=== PATIENT | male | born 1970 | race Caucasian/White ===

== ENCOUNTER 2020-06-03 15:51 | Emergency (ER) | payer SELFPAY ==
--- NOTE | ~2020-06-03 | CT_ITS ---
EXAMINATION: CT abdomen pelvis wo con DATE: 06/03/2020 16:26 INDICATION: Left lower quadrant abdominal pain. Left flank pain. TECHNIQUE: Computed tomography (CT) of the abdomen and pelvis was performed without intravenous contr ast. Automated exposure control and iterative reconstruction technique were employed. The dose-length product was 353.79 mGy-cm. COMPARISON: None. FINDINGS: The visualized portions of the lung bases demonstrate minimal atelectasis. No pleural effus ion. The heart size is normal. No pericardial effusion. The liver, gallbladder, spleen, pancreas, and adrenal glands are normal. There is a 13 mm cyst in right kidney. There is mild left hydronephrosis and hydroureter. There is a 5 mm stone at left ureterovesicular junction. There are no dilated loops of bowel. The appendix is normal. There are no pathologically enlarged lymph nodes. There is no free intraperitoneal fluid. There is asymmetric edema in left perinephric space. There is moderate lumbar spondylosis. IMPRESSION: 1. 5 mm stone at left ureterovesicular junction with mild left hydronephrosis and hydroureter. Reviewed, dictated and finalized at location A. NEERING FACULTY MEMBER IMPRESSION: 1. 5 mm stone at left ureterovesicular junction with mild left hydronephrosis a nd hydroureter.
[2020-06-03 15:53] VITALS: BP 160/99; PULSE 91; RESP 18; TEMP 36.1; O2SAT 99
[2020-06-03] MEDS: SODIUM CHLORIDE 0.9% IV 1,000 ML 999 ML IV CONT ×2 (16:39→17:25)
[2020-06-03] MEDS: FAMOTIDINE 20 MG/2 ML VIAL IV PUSH (16:39)
[2020-06-03] MEDS: HYDROmorphone HCL INJ (*CRX) 1 MG/ML SYR IV PUSH (16:40)
[2020-06-03] MEDS: ONDANSETRON INJ 4 MG/2 ML VIAL IV PUSH (16:40)
[2020-06-03 16:47] VITALS: BP 168/99; O2SAT 98
--- NOTE | 2020-06-03 16:47 | ED.GENADULT ---
HPI - General Adult General Chief complaint: Abdominal Pain <Kai Francois PA-C - Last Filed: 06/03/20 18:16> Stated complaint: left flank pain <Kai Francois PA-C - Last Filed: 06/03/20 18:16> Time Seen by Provider: 06/03/20 16:11 <Kai Francois PA-C - Last Filed: 06/03/20 18:16> Source: patient <Kai Francois PA-C - Last Filed: 06/03/20 18:16> Mode of arrival: ambulatory <MECHE Tripp Last Filed: 06/03/20 18:16> Limitations: no limitations <Kai Francois PA-C - Last Filed: 06/03/20 18:16> History of Present Illness HPI narrative: Patient is a 49-year-old male who presents with acute onset of severe left flank pain had mild discomfort yesterday today the pain intensified has not taken anything for his symptoms presents an uncomfortable state notes nausea denies emesis urinary or bowel changes or similar occurrence in the past <Kai Francois PA-C - Last Filed: 06/03/20 18:16> Related Data Allergies/adverse reactions: Allergies Allergy/AdvReac Type Severity Reaction Status Date / Time Penicillins Allergy Unknown Rash Verified 06/03/20 15:55 <Kai Francois PA-C - Last Filed: 06/03/20 18:16> Review of Systems Review of Systems: All systems reviewed & are unremarkable except as noted in HPI and below <Kai Francois PA-C - Last Filed: 06/03/20 18:16> PMFSH Family History Family History: Family History (System 07/28/19 @ 10:43 by Tin Lauren) Mother Family history of lupus erythematosus Other Diabetes mellitus <Kai Francois PA-C - Last Filed: 06/03/20 18:16> Social History Social History: Social History Smoking status: Current every day smoker Alcohol intake: current <MECHE Tripp Last Filed: 06/03/20 18:16> Exam Narrative: Exam Narrative: GENERAL: Well-appearing, well-nourished, uncomfortable and in no acute distress. HEAD: Normocephalic, atraumatic. EYES: PERRLA and EOMI. ENT: Nares clear, no rhinorrhea or epistaxis. Mucous membranes moist. CHEST: Clear to auscultation. No respiratory distress. No wheezes rales or rhonchi HEART: Regular rate and rhythm. No murmur heard. Normal peripheral pulses. ABDOMEN: Soft, nontender, nondistended. EXTREMITIES: Normal range of motion. No edema. SKIN: Warm, dry, no rash. NEURO: No focal deficits. Alert and oriented x3. PSYCH: Normal mood and affect. <Kai Francois PA-C - Last Filed: 06/03/20 18:16> Course Course Emergency Course: Patient found to have urolithiasis was hydrated given pain management in the ER with improvement will be tried on an outpatient means with urology follow-up given reasons to return hemodynamically stable <Kai Francois PA-C - Last Filed: 06/03/20 18:16> Vital Signs Vital signs: Vital Signs Temperature 36.1 C L 06/03/20 15:53 Pulse Rate 91 06/03/20 15:53 Respiratory Rate 18 06/03/20 15:53 Blood Pressure 160/99 H 06/03/20 15:53 Pulse Oximetry 99 06/03/20 15:53 Temperature 36.1 C L 06/03/20 15:53 Pulse Rate 91 06/03/20 15:53 Respiratory Rate 18 06/03/20 15:53 Blood Pressure 146/85 H 06/03/20 17:46 Pulse Oximetry 99 06/03/20 17:46 <MECHE Tripp Last Filed: 06/03/20 18:16> Vital Signs Temperature 36.1 C L 06/03/20 15:53 Pulse Rate 91 06/03/20 15:53 Respiratory Rate 18 06/03/20 15:53 Blood Pressure 160/99 H 06/03/20 15:53 Pulse Oximetry 99 06/03/20 15:53 Temperature 36.1 C L 06/03/20 15:53 Pulse Rate 91 06/03/20 15:53 Respiratory Rate 18 06/03/20 15:53 Blood Pressure 146/85 H 06/03/20 17:46 Pulse Oximetry 99 06/03/20 17:46 <Angel Castro MD - Last Filed: 06/05/20 15:35> Medical Decision Making MDM Narrative Medical decision making narrative: Patient with urolithiasis pain well controlled will be discharged home for outpatient follow-
[2020-06-03 16:52] LABS: Basophils Percent Auto 0.3 % (0.2-1.2); Eosinophils Absolute Auto 0.2 K/mm3 (0-0.3); Eosinophils Percent Auto 1.2 % (0-4.4); Hematocrit 45.5 % (42.0-52.0); Immature Granulocyte Absolute 0.04 K/mm3 (0.00-0.031); Immature Granulocyte Percent A 0.3 % (0-0.5); Lymphocytes Percent Auto 13.9 % (18.3-44.2); Mean Corpuscular HGB Conc 35.2 g/dl (32-36); Mean Corpuscular Hemoglobin 31.1 pg (26-34); Mean Corpuscular Volume 88.3 fl (80-100); Mean Platelet Volume 9.6 fl (7.4-10.4); Monocytes Absolute Auto 1.6 K/mm3 (0.1-0.6); Monocytes Percent Auto 11.5 % (2.6-8.5); Neutrophils Percent Auto 72.8 % (45.5-73.1); Platelet Count Result 303 k/mm3 (150-375); Red Blood Count 5.15 M/mm3 (4.6-6.20); Red Cell Distribution Width 11.7 % (11.5-14.5); White Blood Count 13.7 K/mm3 (4.5-10.0)
[2020-06-03 17:02] VITALS: BP 187/102; O2SAT 99
[2020-06-03 17:03] LABS: Alanine Aminotransferase 33 U/L (4-50); Albumin Level 4.1 g/dL (3.5-5.1); Alkaline Phosphatase 75 U/L (38-126); Anion Gap 4 mmol/L (8-16); Aspartate Amino Transferase 40 U/L (17-59); Bilirubin,Total 0.7 mg/dL (0.2-1.3); Blood Urea Nitrogen 14 mg/dL (9-20); Calcium 10.1 mg/dL (8.4-10.2); Carbon Dioxide 29 mmol/L (22-30); Chloride 103 mmol/L (98-107); Estimated CRCL calculation 48 ml/min; Estimated Glomerular Filt Rate 50; Glucose 128 mg/dL (75-110); Lipase 140 U/L (23-300); Potassium 3.9 mmol/L (3.4-5.0); Sodium 136 mmol/L (137-145)
[2020-06-03] MEDS: KETOROLAC 30 MG/ML VIAL (*BKC) IV PUSH (17:08)
[2020-06-03 17:16] VITALS: BP 153/98; O2SAT 91
[2020-06-03 17:31] VITALS: BP 164/88; O2SAT 97
[2020-06-03 17:37] LABS: Add Urine Microscopic? YES; Appearance Urine Clear (Clear); Bacteria Urine Trace /hpf; Bilirubin Urine Negative (Negative); Blood Urine 1+ (Negative); Color Urine Straw (Yellow); Glucose Urine UA Negative (Negative); Ketones Urine Negative (Negative); Leukocyte Esterase Ur Negative LEU/UL (Negative); Mucus Urine Rare /lpf; Nitrate Urine Negative (Negative); Protein Urine Negative (Negative); Specific Grav Ur 1.011 (1.001-1.035); Squamous Epithelial Cell Urine Rare /hpf (Few); Urobilinogen Urine Negative mg/dL (<2.0); WBC Urine 0-3 /hpf
[2020-06-03 17:46] VITALS: BP 146/85; O2SAT 99
--- NOTE | 2020-06-03 18:45 | PC.NURSE ---
Pt's IV removed cath intact prior to discharge. 1000cc NS (2000cc total) infused prior to removal.
[2020-06-03] MEDS: TAMSULOSIN HCL 0.4 MG CAPSULE PO (18:56)
[2020-06-03] MEDS: HYDROcodone/acetaminophen (*CRX) 7.5-325 MG TABLET 1 TAB PO (18:56)
== END 2020-06-03 19:00 | disposition home or self-care (01) ==
PROVIDERS: Emergency Medicine Emergency Medical Services; Emergency Provider Emergency Medicine
DX: N13.2 Hydronephrosis with renal and ureteral calculous obstruction (principal); F17.200 Nicotine dependence, unspecified, uncomplicated
CPT/HCPCS: 36415; 74176; 80053; 81001; 83690; 85025; 96361; 96374; 96375; 99284; A9270; J1170; J1885; J2405; J7030

== ENCOUNTER 2020-06-06 16:07 | Emergency (ER) | payer SELFPAY ==
[2020-06-06 16:51] VITALS: BP 131/84; PULSE 115; RESP 18; TEMP 36.4; O2SAT 97
[2020-06-06 17:13] LABS: Basophils Percent Auto 0.4 % (0.2-1.2); Eosinophils Absolute Auto 0.2 K/mm3 (0-0.3); Eosinophils Percent Auto 2.2 % (0-4.4); Hematocrit 41.7 % (42.0-52.0); Hemoglobin 13.9 g/dL (14.0-18.0); Immature Granulocyte Absolute 0.02 K/mm3 (0.00-0.031); Immature Granulocyte Percent A 0.2 % (0-0.5); Lymphocytes Percent Auto 20.4 % (18.3-44.2); Mean Corpuscular HGB Conc 33.3 g/dl (32-36); Mean Corpuscular Hemoglobin 30.3 pg (26-34); Mean Corpuscular Volume 90.8 fl (80-100); Mean Platelet Volume 9.5 fl (7.4-10.4); Monocytes Absolute Auto 1.6 K/mm3 (0.1-0.6); Monocytes Percent Auto 14.5 % (2.6-8.5); Neutrophils Absolute Auto 6.7 K/mm3 (1.3-6.7); Neutrophils Percent Auto 62.3 % (45.5-73.1); Platelet Count Result 269 k/mm3 (150-375); Red Blood Count 4.59 M/mm3 (4.6-6.20); Red Cell Distribution Width 11.8 % (11.5-14.5); White Blood Count 10.8 K/mm3 (4.5-10.0)
[2020-06-06 17:21] LABS: Alanine Aminotransferase 21 U/L (4-50); Albumin Level 3.8 g/dL (3.5-5.1); Alkaline Phosphatase 58 U/L (38-126); Anion Gap 3 mmol/L (8-16); Aspartate Amino Transferase 26 U/L (17-59); Bilirubin,Total 0.6 mg/dL (0.2-1.3); Blood Urea Nitrogen 20 mg/dL (9-20); Carbon Dioxide 31 mmol/L (22-30); Chloride 102 mmol/L (98-107); Estimated CRCL calculation 38 ml/min; Estimated Glomerular Filt Rate 38; Glucose 92 mg/dL (75-110); Lipase 50 U/L (23-300); Potassium 4.4 mmol/L (3.4-5.0); Sodium 136 mmol/L (137-145)
--- NOTE | 2020-06-06 18:42 | PC.NURSE ---
Pt came up to intake desk asking how long the wait would be. This RN told him i was unsure and we were trying to get people moved. Pt states I just want to lay down so im gonna go home and come back tomorrow
== END 2020-06-06 21:33 | disposition left against medical advice (07) ==
LOC: ANHED 18:48
PROVIDERS: Emergency Provider Emergency Medicine
DX: N20.0 Calculus of kidney (principal)
CPT/HCPCS: 36415; 80053; 83690; 85025; 99199

== ENCOUNTER 2020-11-15 18:04 | Emergency (ER) | payer OTHER, SELFPAY ==
--- NOTE | 2020-11-15 18:17 | PC.NURSE ---
patient to triage desk stating that he does not want to wait to be seen
== END 2020-11-15 18:17 | disposition left against medical advice (07) ==
DX: Z53.21 Procedure and treatment not carried out due to patient leaving prior to being seen by health care provider (principal)
CPT/HCPCS: 99199

== ENCOUNTER 2021-07-21 13:07 | Emergency (ER) | payer OTHER, SELFPAY ==
[2021-07-21 13:09] VITALS: BP 142/90; PULSE 85; RESP 15; TEMP 36.7; O2SAT 98
--- NOTE | 2021-07-21 13:54 | ED.DENTAL ---
HPI - Dental/Oral General Chief complaint: Dental/Oral Stated complaint: dental pain Time Seen by Provider: 07/21/21 13:30 Source: patient History of Present Illness HPI Narrative: Patient presents with dental pain and facial swelling. Reports intermittent dental pain over the past several weeks this episode has been going on for the past few days getting progressively worse. Ports his pain is primarily on his left upper jaw this morning woke up and noted swelling around his face he was concerned so he came to the ER for evaluation. Reports a history of poor dentition but has had a hard time getting into see a dentist for his recurring dental pain given the swelling he wanted to be evaluated in the ER. Denies any fevers, cough, congestion. His pain is achy, constant, worse with pushing on his left upper teeth, radiates across his face. Related Data Allergies Allergy/AdvReac Type Severity Reaction Status Date / Time Penicillins Allergy Unknown Rash Verified 06/03/20 15:55 Review of Systems Review of Systems: CONSTITUTIONAL: Denies fever, chills, or sweats. EYES: Denies visual changes, redness, or discharge. ENT: Denies rhinorrhea, congestion, sore throat, or otalgia. CARDIOVASCULAR: Denies chest pain, palpitations, or edema. RESPIRATORY: Denies cough or dyspnea. GASTROINTESTINAL: Denies abdominal pain, nausea, vomiting, or diarrhea. GENITOURINARY: Denies dysuria or hematuria. SKIN: Denies rash or itching. MUSCULOSKELETAL: Denies back pain, joint pain, or myalgia. NEUROLOGIC: Denies headache, numbness, dizziness, or weakness. PSYCHIATRIC: Denies anxiety or depression. All systems reviewed & are unremarkable except as noted in HPI and below PMFSH Family History Family History Mother Family history of lupus erythematosus Other Diabetes mellitus Social History Social History Smoking status: Current every day smoker Alcohol intake: current Exam Narrative: GENERAL: Well-appearing, well-nourished, and in no acute distress. HEAD: Normocephalic, atraumatic. EYES: PERRLA and EOMI. ENT: Nares clear, no rhinorrhea or epistaxis. Mucous membranes moist. Diffusely poor dentition tenderness to palpation on his left upper molars there is erythema and edema noted on the left face no focal areas of fluctuance no obvious purulent drainage NECK: Supple. No masses. No JVD EXTREMITIES: Normal range of motion. No edema. SKIN: Warm, dry, no rash. NEURO: No focal deficits. Alert and oriented x3. PSYCH: Normal mood and affect. Course Vital Signs Vital signs: Vital Signs Temperature 36.7 C 07/21/21 13:09 Pulse Rate 85 07/21/21 13:09 Respiratory Rate 15 07/21/21 13:09 Blood Pressure 142/90 H 07/21/21 13:09 Pulse Oximetry 98 07/21/21 13:09 Temperature 36.7 C 07/21/21 13:09 Pulse Rate 85 07/21/21 13:09 Respiratory Rate 15 07/21/21 13:09 Blood Pressure 142/90 H 07/21/21 13:09 Pulse Oximetry 98 07/21/21 13:09 MDM - Dental/Oral MDM Narrative Medical decision making narrative: H&P as above, vss, pt looks clinically well, exam with left facial swelling and diffusely poor dentition, additional labs/img considered, symptomatic relief available as needed, on reevaluation pt continues to looks clinically well. Suspect dental abscess, dns severe sepsis, severe dehydration, airway compromise. Counseled patient on importance of following up with a dentist. Discharge Plan Discharge Clinical Impression: Abscess, dental Patient Disposition: Home, Self-Care Condition: Improved Instructions: Antibiotic Form, Dental Abscess (ED) Additional Instructions: Please return if your symptoms worsen or fail to improve. If you develop a fever, can not eat/drink anything or if you have any other concerns. Prescriptions: New clindamycin HCl 150 mg capsule 450 mg PO TID 7 Days Qty: 63 RF: 0 ox
[2021-07-21] MEDS: KETOROLAC 30 MG/ML VIAL (*BKC) IM (14:09)
[2021-07-21] MEDS: CLINDAMYCIN HCL 150 MG CAP 450 MG PO (14:10)
== END 2021-07-21 14:18 | disposition home or self-care (01) ==
PROVIDERS: Emergency Provider Emergency Medicine
DX: K04.7 Periapical abscess without sinus (principal); F17.200 Nicotine dependence, unspecified, uncomplicated
CPT/HCPCS: 96372; 99283; A9270; J1885

== ENCOUNTER 2021-07-25 14:29 | Emergency (ER) | payer OTHER, SELFPAY ==
[2021-07-25 14:53] VITALS: BP 115/68; PULSE 74; RESP 18; TEMP 36.3; O2SAT 96
--- NOTE | 2021-07-25 15:49 | PC.NURSE ---
pt called to go back to a room. no answer
--- NOTE | 2021-07-25 16:08 | PC.NURSE ---
Pt called again with no answer
== END 2021-07-25 15:35 | disposition left against medical advice (07) ==
LOC: ANHED 16:16
DX: R22.0 Localized swelling, mass and lump, head (principal)
CPT/HCPCS: 99199

== ENCOUNTER 2022-02-15 13:47 | Emergency (ER) | payer OTHER, SELFPAY ==
[2022-02-15 14:07] VITALS: BP 128/92; PULSE 103; RESP 18; TEMP 36.1
--- NOTE | 2022-02-15 14:10 | ED.LOWEXIN ---
HPI - Extremity Injury (Lower) General Chief Complaint: Extremity Injury, Lower Stated Complaint: Left Knee Pain Time Seen by Provider: 02/15/22 14:11 Source: patient Mode of arrival: ambulatory Limitations: no limitations History of Present Illness HPI Narrative: 51-year-old male presents with complaint redness, swelling, tenderness to left lower leg. Reports started as small pimple and she popped it and infection became worse. 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 Afebrile. Ambulatory with limp. All systems reviewed and negative except as noted above. Related Data Home Medications Medication Instructions Recorded Confirmed ibuprofen 800 mg tablet mg 02/15/22 Allergies Allergy/AdvReac Type Severity Reaction Status Date / Time Penicillins Allergy Unknown Rash Verified 06/03/20 15:55 [facility] Family History Family History Mother Family history of lupus erythematosus Other Diabetes mellitus Social History Social History Smoking status: Current every day smoker Alcohol intake: current Comments At time of signature, agree with nursing past medical, surgical, social and family history. There is no relevant family history pertinent to the presenting complaint. Exam Narrative: GENERAL: This is a well-nourished, well-developed patient, in no apparent distress. HEAD: normocephalic, atraumatic. EYES: PERRL. Sclera clear/white. Vision is grossly intact. EARS: External ears normal NOSE: External nose normal NECK: Neck supple, non-tender without lymphadenopathy, masses or thyromegaly. CARDIOVASCULAR: Regular rate and rhythm without murmurs, gallops, or rubs. RESPIRATORY: Clear to auscultation. Breath sounds equal bilaterally. No wheezes, rales, or rhonchi. SKIN: warm, Dry, intact with no suspicious lesions or rash, good texture and turgor. Erythema, warmth, tenderness , mild swelling to left knee/ jacob. No drainage. NEURO: awake, alert, and oriented to person, place and time. There were no obvious focal neurologic abnormalities. EXTREMITIES: No joint tenderness, effusion, or edema noted. Skin: Full body images: 1. cellulitis Course Course Level of Care: Express Care Visit Vital Signs Vital signs: reviewed MDM - Extremity Injury (Lower) MDM Narrative Medical decision making narrative: Patient is aware of diagnosis, understands and agrees to treatment plan. Anticipatory guidance given. Patient agrees to follow-up as directed and is aware of reasons to seek care at the emergency department. Portions of this record may have been created with voice recognition software Discharge Plan Discharge Clinical Impression: Cellulitis of knee, left Patient Disposition: Home, Self-Care Condition: Stable Instructions: Antibiotic Form, Cellulitis (ED) Additional Instructions: Take antibiotics as prescribed until gone. Continue taking ibuprofen or Tylenol to treat your pain. Follow-up with your primary care physician if symptoms not improving. If you have severe pain, high fever go to the ER. Prescriptions: New clindamycin HCl 300 mg capsule 300 mg PO Q8H 10 Days Qty: 30 0RF No Action ibuprofen 800 mg Tablet Follow-up/Referrals: Yong Esquivel MD [Primary Care Provider] - Time of Disposition: 14:18
== END 2022-02-15 14:40 | disposition home or self-care (01) ==
PROVIDERS: Emergency Provider Nurse Practitioner Family; PCP Emergency Medicine
DX: L03.116 Cellulitis of left lower limb (principal); F17.200 Nicotine dependence, unspecified, uncomplicated
CPT/HCPCS: 99213; G0463

== ENCOUNTER 2022-04-13 16:37 | Emergency (ER) | payer OTHER, SELFPAY ==
[2022-04-13 16:42] VITALS: BP 157/89; PULSE 90; RESP 18; TEMP 36.1; O2SAT 98
--- NOTE | 2022-04-13 16:42 | ED.URI ---
HPI - URI/Sore Throat General Chief Complaint: Upper Respiratory Infection Stated Complaint: Cough/Back Pain/Running Nose Time Seen by Provider: 04/13/22 16:42 Source: patient, RN notes reviewed and old records reviewed Mode of arrival: ambulatory Limitations: no limitations History of Present Illness HPI Narrative: 51-year-old male presents to the [facility] with complaints of cough, back pain, runny nose for 2-3 days. Has tried multiple [id number] products with no relief. Patient is a smoker Onset (ago): day(s) (2-3) Related Data Allergies Allergy/AdvReac Type Severity Reaction Status Date / Time Penicillins Allergy Unknown Rash Verified 04/13/22 16:44 Review of Systems Review of Systems: All systems reviewed & are unremarkable except as noted in HPI and below Constitutional: Constitutional: Reports no additional constitutional complaints Eyes: Eyes: Reports no additional eye complaints ENT: Reports as per HPI and Reports nasal discharge Cardiovascular: Cardiovascular: Reports no additional cardiovascular complaints, Denies chest pain and Denies dyspnea Respiratory: Respiratory: Reports as per HPI, Denies chest congestion, Reports cough and Denies dyspnea Gastrointestinal: Gastrointestinal: Reports no additional gastrointestinal complaints, Denies abdominal pain, Denies nausea and Denies vomiting Musculoskeletal: Musculoskeletal: Reports no additional musculoskeletal complaints Integumentary/Breasts: Skin/Breast: Reports system reviewed and no additional complaints, except as docu Neurologic: Reports system reviewed and no additional complaints, except as documented Psychiatric: Psychiatric: Reports no additional psychiatric complaints Allergic/Immunologic: Allergic/Immunologic: Reports no additional allergic/immunologic complaints [facility] Family History Family History Mother Family history of lupus erythematosus Other Diabetes mellitus Social History Social History Smoking status: Current every day smoker Alcohol intake: current Comments At the time of my signature, I reviewed and agree with the nursing past medical, surgical, social, and family history. There is no relevant family history pertinent to the patient complaint. Exam Const: General: cooperative, healthy appearing, comfortable, no acute distress, well developed, alert and well nourished Nutritional Appearance: well nourished Orientation/consciousness: patient oriented x3 Limitations: no limitations HENMT: Head: normal to inspection Ears: hearing grossly normal bilaterally and external ears normal Face/Nose/Sinus: Normal external nose present, Normal nares present, Normal nasal mucous membranes and turbinates present and normal facial exam Face and sinus: normal facial exam Mouth: Yes Normal oral and palatal mucosa present, Yes lip normal and Yes moist mucous membranes Throat: posterior oropharynx normal and uvula midline Eyes: General: appearance normal, both eyes and all related structures Alignment and Position: alignment normal Periorbital: periorbital findings normal Conjunctivae: conjunctivae normal Pupils: Equal, round and reactive pupils present EOM: EOMs intact bilaterally Neck: Neck: normal visual inspection, full ROM, no lymphadenopathy and no meningeal signs Chest: Chest palpation & inspection: normal inspection of the chest Resp: Effort & Inspection: normal respiratory effort and able to speak in complete sentences Auscultation: clear to auscultation bilaterally, no crackles, no rales, no rhonchi, no wheezes and diminished lung sounds bilateral throughout Cardio: Rate: regular rate Rhythm: regular rhythm Back/Spine/Pelvis: Cervical Spine: cervical ROM normal Thoracic/Lumbar Spine: No thoracic spinal tenderness Skin: General skin exam: normal color and no rashes or lesions noted Lesions: no lesion
== END 2022-04-13 17:26 | disposition home or self-care (01) ==
PROVIDERS: Emergency Provider Nurse Practitioner; PCP Emergency Medicine
DX: J40 Bronchitis, not specified as acute or chronic (principal); F17.200 Nicotine dependence, unspecified, uncomplicated; Z20.822 Contact with and (suspected) exposure to COVID-19
CPT/HCPCS: 87426; 87804; 99213; C9803; G0463

== ENCOUNTER 2022-04-17 12:28 | Outpatient (CLI) | payer OTHER, SELFPAY ==
--- NOTE | ~2022-04-17 | XR_ITS ---
EXAMINATION: XR chest 2V DATE: 04/17/2022 13:01 INDICATION: Tobacco use, recent bronchitis TECHNIQUE: PA and lateral views of the chest are obtained. COMPARISON: 02/21/2016 FINDINGS: The lungs are free of acute opacities. No pleural effusion or pneumothorax. The cardiomedia stinal silhouette is normal. There is mild thoracic spondylosis. 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 IMPRESSION: 1. No acute cardiopulmonary abnormality. Reviewed, dictated and finalized at location L. NURSE MANAGER
[2022-04-17 13:30] LABS: Hematocrit 41.9 % (42.0-52.0); Mean Corpuscular HGB Conc 33.4 g/dl (32-36); Mean Corpuscular Hemoglobin 30.8 pg (26-34); Mean Corpuscular Volume 92.3 fl (80-100); Platelet Count Result 312 k/mm3 (150-375); Red Blood Count 4.54 M/mm3 (4.6-6.20); Red Cell Distribution Width 12.3 % (11.5-14.5)
[2022-04-17 13:41] LABS: Creatinine Urine 199.4 mg/dL
[2022-04-17 13:45] LABS: MALB Creatinine Ratio 4.1 mg/g (0-30); Microalbumin Urine Random 8.1 mg/L (0-16.7)
[2022-04-17 13:49] LABS: Alanine Aminotransferase 48 U/L (6-50); Albumin Level 4.2 g/dL (3.5-5.1); Alkaline Phosphatase 71 U/L (38-126); Anion Gap 6 mmol/L (8-16); Aspartate Amino Transferase 35 U/L (17-59); Bilirubin,Total 0.6 mg/dL (0.2-1.3); Blood Urea Nitrogen 20 mg/dL (9-20); Calcium 8.8 mg/dL (8.4-10.2); Carbon Dioxide 29 mmol/L (22-30); Chloride 101 mmol/L (98-107); Cholesterol 213 mg/dL (0-200); Estimated Glomerular Filt Rate > 60; Glucose 110 mg/dL (65-110); HDL Direct 66 mg/dL; Hemoglobin A1C 5.9 % (<5.7); Potassium 3.5 mmol/L (3.4-5.0); Sodium 136 mmol/L (137-145); Triglycerides 85 mg/dL (<150)
[2022-04-17 14:00] LABS: LDL Cholesterol Direct 104 mg/dL
[2022-04-17 14:25] LABS: Free T4 Free Thyroxine 1.14 ng/mL (0.78-2.19); Vitamin D 25 Hydroxy 35.2 ng/mL
[2022-04-17 14:40] LABS: Hepatitis B Surface Antigen Negative (Negative)
[2022-04-17 14:45] LABS: HAV RESULT Negative (Negative); Hepatitis B Core IgM Result Negative (Negative)
[2022-04-17 14:58] LABS: Hepatitis C Virus Antibody Reactive (Negative)
[2022-04-22 06:36] LABS: Hepatitis C RNA, Quant PCR <15 IU/mL
[2022-04-22 10:51] LABS: Testosterone Free 60.5 pg/mL (46.0-224.0)
== END 2022-04-17 12:29 | disposition home or self-care (01) ==
LOC: ANHLAB 12:31
PROVIDERS: PCP Emergency Medicine; Visit Provider Emergency Medicine
DX: R06.02 Shortness of breath (principal); R50.9 Fever, unspecified; B19.20 Unspecified viral hepatitis C without hepatic coma; F32.9 Major depressive disorder, single episode, unspecified; F41.9 Anxiety disorder, unspecified; R42 Dizziness and giddiness; Z72.0 Tobacco use
CPT/HCPCS: 36415; 71046; 80053; 80061; 80074; 82043; 82306; 83036; 84402; 84439; 84443; 85027; 87522

== ENCOUNTER 2022-05-20 13:48 | Outpatient (CLI) | payer OTHER, SELFPAY ==
[2022-05-20 15:02] LABS: Hematocrit 43.6 % (42.0-52.0); Hemoglobin 14.9 g/dL (14.0-18.0); Mean Corpuscular HGB Conc 34.2 g/dl (32-36); Mean Corpuscular Hemoglobin 31.7 pg (26-34); Mean Corpuscular Volume 92.8 fl (80-100); Mean Platelet Volume 9.8 fl (7.4-10.4); Platelet Count Result 348 k/mm3 (150-375); White Blood Count 7.2 K/mm3 (4.5-10.0)
== END 2022-05-20 13:49 | disposition home or self-care (01) ==
LOC: ANHLAB 13:51
PROVIDERS: PCP Emergency Medicine; Visit Provider Emergency Medicine
DX: D72.829 Elevated white blood cell count, unspecified (principal)
CPT/HCPCS: 36415; 85027

== ENCOUNTER 2022-06-12 18:26 | Emergency (ER) | payer OTHER, SELFPAY ==
--- NOTE | 2022-06-12 18:32 | ED.SKABFB ---
HPI - Skin/Abscess/Foreign Bdy General Chief complaint: Skin/Abscess/Foreign Body Stated complaint: Lump,Bumps Time Seen by Provider: 06/12/22 18:40 Source: patient Mode of arrival: ambulatory Limitations: no limitations History of Present Illness HPI narrative: Mr. Rankin is a 52-year-old male patient presenting to the clinic today with complaints of lumps and bumps x5 days. He reports he had a skin infection just below his left knee approximately 2 months ago and was given doxycycline for this. He thought at that time it was a spider bite. His symptoms have resolved however over the last 5 days he has noticed the area get red and is painful when he bends down on his knee. He denies any drainage, fever, or chills Related Data Home Medications Medication Instructions Recorded Confirmed No Home Medications 06/12/22 06/12/22 Allergies Allergy/AdvReac Type Severity Reaction Status Date / Time Penicillins Allergy Unknown Rash Verified 04/13/22 16:44 Review of Systems Review of Systems: Pertinent positives per HPI. Patient denies any fever, chills, rash, headache, visual changes, dizziness, cough, runny nose, sore throat, shortness of breath, chest pain, palpitations, nausea, vomiting, diarrhea, constipation, abdominal pain, or any urinary issues. [facility] Family History Family History Mother Family history of lupus erythematosus Other Diabetes mellitus Social History Social History Smoking status: Current every day smoker Alcohol intake: current Comments At the time of my signature, I reviewed and agree with the nursing past medical, surgical, social, and family history. There is no relevant family history pertinent to the patient complaint. Exam Narrative: General: Well-developed, well nourished, in no apparent distress Head: Normocephalic, atraumatic. Cardio: Regular rate and rhythm, s1 and s2 normal, no murmur appreciated. Resp: Clear to auscultation bilaterally, no rhonchi, rales, wheezing or rubs. Integumentary: [place], warm, and dry, intact without lesion, no rashes. Faint redness to the left inferior knee skin, no erythema, fluctuance, induration, or tenderness to palpation Course Course Emergency Course: Portions of this record may have been created with voice recognition software. Level of Care: Express Care Visit Vital Signs Vital signs: Vital Signs Temperature 36.7 C 06/12/22 18:35 Pulse Rate 102 H 06/12/22 18:35 Respiratory Rate 12 06/12/22 18:35 Blood Pressure 149/88 H 06/12/22 18:35 Pulse Oximetry 100 06/12/22 18:35 Oxygen Delivery Room Air 06/12/22 18:35 Temperature 36.7 C 06/12/22 18:35 Pulse Rate 102 H 06/12/22 18:35 Respiratory Rate 12 06/12/22 18:35 Blood Pressure 149/88 H 06/12/22 18:35 Pulse Oximetry 100 06/12/22 18:35 Oxygen Delivery Room Air 06/12/22 18:35 Vital signs reviewed MDM - Skin/Abscess/Foreign Bdy MDM Narrative Medical decision making narrative: At the time of visit patient is resting comfortably on the exam table. I do not see any sign of infection or abscess. Skin is mildly red but there is no tenderness to palpation or erythemic. Patient has a normal skin exam. Recommend watchful observation and following up with his PCP as needed. Differential Diagnosis Differential diagnosis: Likely abscess of skin or subcutaneous tissue, cellulitis, eczema, insect bites and contact dermatitis Discharge Plan Discharge Clinical Impression: Normal skin exam Patient Disposition: Home, Self-Care Condition: Stable Instructions: Antibiotic Form Additional Instructions: Skin exam shows mild redness otherwise was normal in the clinic today Recommend observation Watch for signs and symptoms of infection- redness, streaking, swelling, purulent discharge, or increase in pain. Follow-up with you
[2022-06-12 18:35] VITALS: BP 149/88; PULSE 102; RESP 12; TEMP 36.7; O2SAT 100
== END 2022-06-12 18:52 | disposition home or self-care (01) ==
PROVIDERS: Emergency Provider Nurse Practitioner Family; PCP Emergency Medicine
DX: Z71.1 Person with feared health complaint in whom no diagnosis is made (principal); F17.200 Nicotine dependence, unspecified, uncomplicated
CPT/HCPCS: 99211; G0463

== ENCOUNTER 2022-06-26 13:51 | Outpatient (CLI) | payer OTHER, SELFPAY ==
--- NOTE | ~2022-06-26 | XR_ITS ---
Left Knee Technique: AP, lateral, and sunrise views were obtained. Clinical History: Pain Findings: No fracture or dislocation is seen. Osseous alignment is anatomic. Joint spaces are preserv ed without degenerative or erosive change. There are probable small metallic foreign body the lateral soft tissues at the level of proximal fibular neck. No joint effusion is seen. Impression: No fracture or dislocation. Probable small metallic foreign body in the lateral soft tissues at the level of the fibular neck. Reviewed, dictated and finalized at location M. Impression: No fracture or dislocation. Probable small metallic foreign body in the lateral soft tissues at the level o f the fibular neck.
== END 2022-06-26 13:52 | disposition home or self-care (01) ==
LOC: ANHIMG 13:54
PROVIDERS: PCP Emergency Medicine; Visit Provider Emergency Medicine
DX: M25.562 Pain in left knee (principal)
CPT/HCPCS: 73564

== ENCOUNTER 2022-07-26 16:45 | Emergency (ER) | payer OTHER, SELFPAY ==
--- NOTE | ~2022-07-26 | XR_ITS ---
EXAM: XR humerus RT DATE: 07/26/2022 17:39 HISTORY: fall, injury LADDER/SCAFFOLD X 6 FT OR SO ATTN MID TO DISTAL . COMPARISON: None available. FINDINGS: Normal mineralization. No fracture or dislocation. No lytic or blastic lesion. Degenerativ e changes in the right shoulder. No erosion or periosteal change. Soft tissues within normal limits. IMPRESSION: No acute osseous finding in the right humerus. Reviewed, dictated and finalized at location K.
[2022-07-26 16:49] VITALS: BP 134/84; PULSE 86; RESP 18; TEMP 36.6; O2SAT 98
--- NOTE | 2022-07-26 17:18 | ECG_ITS ---
Measurements Intervals [place] Rate: 83 P: 84 MO: 216 QRS: -87 QRSD: 152 T: 87 QT: 417 QTc: 492 Interpretive Statements ELECTRONIC VENTRICULAR PACEMAKER SINUS RHYTHM WITH ATRIAL SENSING AND VENTRICULAR PACING ABNORMAL RHYTHM ECG NO PREVIOUS ECG AVAILABLE FOR COMPARISON Electronically Signed On 07-28-2022 6:53:01 CDT by Jayme Lima M.D.
--- NOTE | 2022-07-26 18:10 | PC.NURSE ---
PT WISHES TO LEAVE. ADVISED OF RISK DUE TO THE FALL BUT STATES WANTS TO GO TO A DIFFERENT ED. AMBULATORY FROM THE ED WITH A STEADY GAIT.
== END 2022-07-26 18:24 | disposition left against medical advice (07) ==
PROVIDERS: Emergency Provider Emergency Medicine; PCP Emergency Medicine
DX: S79.921A Unspecified injury of right thigh, initial encounter (principal)
CPT/HCPCS: 73060; 93005; 99199

== ENCOUNTER 2022-11-03 02:07 | Emergency (ER) | payer OTHER, SELFPAY ==
--- NOTE | ~2022-11-03 | XR_ITS ---
Left Knee Technique: AP, lateral, and oblique views were obtained. Clinical History: Pain Findings: No fracture or dislocation is seen. Osseous alignment is anatomic. Joint spaces are preserv ed without degenerative or erosive change. Soft tissues are unremarkable. No joint effusion is seen. Impression: Unremarkable left knee radiographs. Reviewed, dictated and finalized at location . Impression: Unremarkable left knee radiographs.
[2022-11-03 02:10] VITALS: BP 109/95; PULSE 88; RESP 19; TEMP 36.4; O2SAT 97
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
[2022-11-03] MEDS: TETANUS,DIPHTHERIA,AC PERTUSSIS ADULT (0.5 ML) BOOSTRIX IM (02:49)
[2022-11-03] MEDS: ceFAZolin 2 GM/D5W 50 ML 2 GM/50 ML BAG IVPB (03:10)
[2022-11-03] MEDS: HYDROcodone/acetaminophen (*CRX) 5-325 MG TABLET 1 TAB PO (03:38)
== END 2022-11-03 05:06 | disposition home or self-care (01) ==
PROVIDERS: Emergency Provider Emergency Medicine; PCP Emergency Medicine
DX: S91.011A Laceration without foreign body, right ankle, initial encounter (principal); S80.212A Abrasion, left knee, initial encounter; Z23 Encounter for immunization; V28.49XA Other motorcycle driver injured in noncollision transport accident in traffic accident, initial encounter
CPT/HCPCS: 12002; 73562; 73610; 90471; 90715; 96365; 99284; A9270; J0690

== ENCOUNTER 2024-02-25 17:55 | Emergency (ER) | payer OTHER, MEDICAID, SELFPAY ==
[2024-02-25 18:06] VITALS: BP 133/71; PULSE 84; RESP 20; TEMP 36.6; O2SAT 98
--- NOTE | 2024-02-25 18:47 | ED_ITS ---
HPI - URI/Sore Throat General Chief Complaint: Upper Respiratory Infection Stated Complaint: cough, freezing Time Seen by Provider: 02/25/24 18:48 Source: patient, RN notes reviewed and old records reviewed Mode of arrival: ambulatory Limitations: no limitations History of Present Illness HPI Narrative: patient presents with one-week history of cough, congestion, chills, sweats, body aches. He reports that cough has become productive, painful. He denies any shortness of breath, does endorse wheezing. He is not in any distress, including respiratory distress Related Data Allergies Allergy/AdvReac Type Severity Reaction Status Date / Time Penicillins Allergy Intermediate Rash Verified 02/25/24 18:18 Review of Systems Review of Systems: All systems reviewed & are unremarkable except as noted in HPI and below Constitutional: Constitutional: Reports no additional constitutional complaints, Reports body ache(s), Reports chills, Reports fatigue, Reports fever(s), Reports headache(s) and Reports night sweats ENT: Reports system reviewed and no additional complaints, except as documented Cardiovascular: Cardiovascular: Reports no additional cardiovascular complaints Respiratory: Respiratory: Reports no additional respiratory complaints, Reports change in phlegm color, Reports chest congestion, Reports cough, Reports excessive phlegm production and Reports pain with cough Gastrointestinal: Gastrointestinal: Reports no additional gastrointestinal complaints PMF Family History Family History Mother Family history of lupus erythematosus Other Diabetes mellitus Social History Social History Smoking status: Current every day smoker Alcohol intake: current Comments At the time of my signature, I reviewed and agree with the nursing past medical, surgical, social, and family history. There is no relevant family history pertinent to the patient complaint. Exam Const: General: cooperative, no acute distress, alert and awake Orientation/consciousness: oriented to person, oriented to place and oriented to time HENMT: Head: normal to inspection Mouth: Yes moist mucous membranes Throat: posterior oropharynx abnormal erythema Resp: Effort & Inspection: normal respiratory effort and able to speak in complete sentences Auscultation: clear to auscultation bilaterally, crackles bilateral, no rales, no rhonchi and wheezes scattered wheezes Cardio: Palpation: normal PMI Rate: regular rate Rhythm: regular rhythm Heart sounds: S1 normal heart sound present and S2 normal heart sound present Neuro: General: oriented to person, oriented to place and oriented to time Cranial nerves: Yes CN's II-XII intact bilaterally Psych: Appearance: grossly normal Thought process: Normal thought process present Insight: Good insight present (Psych) Judgement: Good judgement present (Psych) Course Course Level of Care: Express Care Visit Vital Signs Vital signs: Vital Signs Temperature 97.8 F 02/25/24 18:06 Pulse Rate 84 02/25/24 18:06 Respiratory Rate 20 02/25/24 18:06 Blood Pressure 133/71 02/25/24 18:06 Pulse Oximetry 98 02/25/24 18:06 Oxygen Delivery Room Air 02/25/24 18:06 Temperature 97.8 F 02/25/24 18:06 Pulse Rate 84 02/25/24 18:06 Respiratory Rate 20 02/25/24 18:06 Blood Pressure 133/71 02/25/24 18:06 Pulse Oximetry 98 02/25/24 18:06 Oxygen Delivery Room Air 02/25/24 18:06 Reviewed MDM - URI/Sore Throat MDM Narrative Medical decision making narrative: history and exam consistent with atypical pneumonia that is prevalent in the community at this time. Treat with azithromycin, steroid burst, bronchodilator. Patient advised to follow with primary care provider. Emergency department for new or worse symptoms. He is nontoxic appearing, no distress Discharge instructions reviewed with patient, as well as provided in writing per nursing staff. The instructions also include specific and strict return/GO TO THE ER as well as f/u information. All questions have been answered, and the patient deny any further questions with discharge and discharge plan. Some parts of this dictation were generated by voice recognition software and may contain typographical and/or grammatical inaccuracies. Differential Diagnosis Differential diagnosis: Likely upper respiratory infection, otitis media, viral infection, influenza and pharyngitis Medical Records Attestation: I reviewed the patient's medical records. Discharge Plan Discharge Clinical Impression: Pneumonia Patient Disposition: Home, Self-Care Condition: Stable Instructions: Antibiotic Form, Pneumonia (ED) Additional Instructions: take medications as prescribed. Follow with primary care provider. Emergency department for new or worse symptoms Patient Language: Thai Prescriptions: New azithromycin 250 mg tablet See Rx Instructions .ROUTE .COMPLEX Qty: 6 0RF Rx Instructions: For 250 mg dose pack: take 500 mg today (day 1), then 250 mg for 4 days (days 2-5) prednisone 50 mg tablet 50 mg PO DAILY Qty: 5 0RF albuterol sulfate [Ventolin HFA] 90 mcg/actuation HFA aerosol inhaler 2 puff inhalation QID PRN (Reason: shortness of breath or wheezing) Qty: 8.5 0RF Follow-up/Referrals: PHYSICIAN,[employer] [Primary Care Provider] - Time of Disposition: 19:02
== END 2024-02-25 19:07 | disposition home or self-care (01) ==
PROVIDERS: Emergency Provider Nurse Practitioner Family
DX: J18.9 Pneumonia, unspecified organism (principal); F17.200 Nicotine dependence, unspecified, uncomplicated
CPT/HCPCS: 99213; G0463